=== PATIENT | female | born 1970 | race Caucasian/White ===

== ENCOUNTER 2023-02-16 10:08 | Emergency (ER) | payer BC ==
[~2023-02-16] VITALS: Ht 162.6 cm; Wt 107.4 kg
[2023-02-16 10:14] VITALS: BP 141/86
--- NOTE | 2023-02-16 10:59 | NUR ---
pt presents to the er with right knee pain, pt describes twisting knee. pain 7/10.
[2023-02-16] MEDS ORDERED: HYDR-3973 PO ×2 (12:30→13:52)
[2023-02-16] MEDS ORDERED: HYDROcodone/acetaminophen 10/325mg tab PO ONE (12:35)
== END 2023-02-16 12:50 | disposition home or self-care (01) ==
LOC: ER 10:09
DX: S83.91XA Sprain of unspecified site of right knee, initial encounter (principal); Z79.899 Other long term (current) drug therapy; X50.1XXA Overexertion from prolonged static or awkward postures, initial encounter; Y93.89 Activity, other specified; Y92.89 Other specified places as the place of occurrence of the external cause; Y99.8 Other external cause status
CPT/HCPCS: 73564; 99283